=== PATIENT | female | born 1975 | race Two or more races ===

== ENCOUNTER 2018-10-09 20:24 | Emergency (ER) | payer SELFPAY ==
[~2018-10-09] VITALS: Ht 162.6 cm; Wt 70.5 kg
[2018-10-09 20:28] VITALS: BP 102/65
[2018-10-09] MEDS ORDERED: KETOROLAC 30 MG/1 ML ONE (20:48)
[2018-10-09] MEDS ORDERED: KETOROLAC 30 MG/1 ML IM ONE (21:00)
== END 2018-10-09 21:53 | disposition home or self-care (01) ==
LOC: ED 21:45
DX: G89.11 Acute pain due to trauma (principal); M25.562 Pain in left knee; X58.XXXA Exposure to other specified factors, initial encounter; Y93.67 Activity, basketball; Y92.310 Basketball court as the place of occurrence of the external cause; Y99.8 Other external cause status
CPT/HCPCS: 29505; 73564; 96372; 99283; J1885

== ENCOUNTER 2020-07-11 19:26 | Emergency (ER) | payer OTHER ==
[~2020-07-11] VITALS: Ht 162.6 cm; Wt 70.8 kg
[2020-07-11] MEDS ORDERED: COCAINE TOPICAL SOLN 4%, 4ML TP ONE (20:00)
[2020-07-11] MEDS ORDERED: TRANEXAMIC ACID 100 MG/ML, 10ML TP ONE (20:00)
[2020-07-11] MEDS ORDERED: COCAINE TOPICAL SOLN 4%, 4ML ONE (20:03)
[2020-07-11] MEDS ORDERED: TRANEXAMIC ACID 100 MG/ML, 10ML ONE (20:03)
--- NOTE | 2020-07-11 20:06 | NUR ---
Meds handed to [facility],
[2020-07-11 20:24] LABS: BASOPHILS % (AUTO) 1 % (0-1); EOSINOPHILS % (AUTO) 1 % (1-7); LYMPHOCYTES % (AUTO) 29 % (22-44); MEAN CORPUSCULAR HEMOGLOBIN 31.9 pg (27.0-34.8); MEAN CORPUSCULAR HGB CONC 35.1 g/dL (32.4-35.8); MEAN PLATELET VOLUME 8.5 fL (7.4-10.4); MONOCYTES % (AUTO) 7 % (2-9); NEUTROPHILS % (AUTO) 62 % (42-75); PLATELET COUNT 284 x10^3/uL (130-400); RED BLOOD COUNT 4.75 x10^6/uL (3.82-5.3); RED CELL DISTRIBUTION WIDTH 12.6 % (9.6-15.2)
[2020-07-11 20:27] LABS: MD NO
[2020-07-11 20:56] VITALS: BP 145/91
--- NOTE | 2020-07-11 22:04 | NUR ---
DC after rhinorocket, pt verbalizes understanding of instruct and f/u. to return to er if worse or concerns.
== END 2020-07-11 22:07 | disposition home or self-care (01) ==
LOC: ED 22:01
DX: R04.0 Epistaxis (principal); R51.9 Headache, unspecified
CPT/HCPCS: 30901; 36415; 85025; 99284